=== PATIENT | male | born 1965 | race African-American/Black ===

== ENCOUNTER → 2019-12-21 | Outpatient (CLI) | payer OTHER ==
--- NOTE | 2019-12-21 10:29 | RAD ---
EXAM: Right hip, 2 views; lumbar spine, 2 views. HISTORY: Pain. COMPARISON: None. FINDINGS: Right hip: 2 views of the right hip are obtained. There is complete loss of the right hip joint space with severe degenerative subchondral sclerosis, subchondral cyst formation, marginal osteophytosis and flattening of the superior acetabulum and femoral head. There is no acute fracture, dislocation or subluxation. Lumbar spine: 2 views of the lumbar spine are obtained. There is mild lumbar levoscoliosis. There is no significant listhesis. There is multilevel endplate remodeling and facet arthropathy, predominantly at the lumbosacral junction. There is a chronic mild compression fracture of T11. No acute fracture is seen. There is incidental severe degenerative change involving the right and left hip, the former of which is described in detail above. IMPRESSION: 1. Severe right hip osteoarthritis with associated bony remodeling. 2. Multilevel degenerative change involving the lumbar spine, primarily the lower lumbar levels. 3. Chronic compression fracture of T11. Electronically signed by: Candace Sun MD (12/21/2019 10:26 AM) [id number]
== END ==
LOC: RAD 09:29
PROVIDERS: ATTEND Anesthesiology Pain Medicine
DX: M16.11 Unilateral primary osteoarthritis, right hip (principal); M47.816 Spondylosis without myelopathy or radiculopathy, lumbar region; M48.54XA Collapsed vertebra, not elsewhere classified, thoracic region, initial encounter for fracture
CPT/HCPCS: 72100; 73502